=== PATIENT | female | born 1975 ===

== ENCOUNTER 2025-06-29 20:27 | Observation (INO) ==
--- NOTE | 2025-06-29 21:50 | Emergency Department Note ---
Impression & Plan Acute ear pain, Acute facial pain ED Provider Note CHIEF COMPLAINT: Ear pain HISTORY OF PRESENTING ILLNESS: The patient is a pleasant 49-year-old female who arrives to the emergency department for evaluation of left-sided ear pain that is now spread into the left jaw. She reports she saw her PCP last Thursday, and was given amoxicillin, without significant improvement of her symptoms. She reports swelling is worsened in the face, and pain is severe. She states she is unable to eat or drink due to the pain. She reports history of previous ear infections, in her youth. She reports no difficulty swallowing, or managing her own secretions. She is currently afebrile, with stable vital signs. REVIEW OF SYSTEMS: See HPI for pertinent positives and pertinent negatives. ALLERGIES: See below MEDICATIONS: See below PAST MEDICAL HISTORY: See below PHYSICAL EXAM: VITALS: Vitals are noted on the nurse's note and reviewed by myself. Vital signs stable. GENERAL: 49-year-old female, in no acute distress, nondiaphoretic, well- developed well-nourished. SKIN: Left-sided facial swelling, no erythema, no warmth. HEAD: Normocephalic atraumatic. EARS: External auditory canals clear, tympanic membranes pearly marmolejo without erythema or effusion bilaterally. No hemotympanum. EYES: Pupils equal round and reactive to light and accommodation. Conjunctivae without injection, sclerae without icterus. Extraocular movements intact. MOUTH: Mucous membranes moist. Tonsils are not enlarged. Pharynx without erythema or exudate. Uvula midline. Airway patent. Tongue does not deviate. Dental caries, erythema, with edema noted to the left lower posterior molars. No sublingual edema. No trismus. NECK: Supple without nuchal rigidity. Left cervical lymphadenopathy. HEART: Regular rate and rhythm without murmurs gallops or rubs. LUNGS: Clear to auscultation bilaterally without wheezes, rales or rhonchi. No retractions or accessory muscle use. NEURO: Patient was alert and oriented to person place and time. No focal neurological deficits. DIFFERENTIAL DIAGNOSIS: Dental caries, dental abscess, Ludwigs angina, Vincent angina, dental fracture, facial cellulitis, parotitis, osteomyelitis, sinus infection, peritonsillar abscess. ED COURSE AND MEDICAL DECISION MAKING: MEDICATIONS GIVEN: 5 mg p.o. oxycodone, 4 mg p.o. Zofran, 875 mg p.o. Augmentin, 3 g IV Unasyn. INTERPRETATION OF LABS: I interpreted the labs with full lab results as below in the lab section of this note. Pertinent lab results discussed in the MDM section below. INTERPRETATION OF IMAGING: Imaging studies were interpreted by myself and read by radiology as per the imaging section of this note. CONSULTATIONS: Dr. Herve Roman, [facility] [place] MDM SUMMARY: The patient is a pleasant, 49-year-old female who arrives to the emergency department for evaluation of the above-stated complaint. Saline lock was established, lab work was obtained. CBC shows no leukocytosis, no anemia. CMP is unremarkable. Facial CT imaging was obtained, without IV contrast due to patient allergy which per my interpretation shows periapical abscesses around tooth #19, with prominent cervical lymph nodes. I spoke with Dr. Herve oRman from [facility] [place], who agreed to evaluate the patient. Patient was provided oral pain medication, as well as IV antibiotics. [facility], and pain control, until Dr. Roman is able to likely drain the abscess. Please refer to their documentation for further patient workup and care. DIAGNOSIS: Acute ear pain, acute facial pain The chart was completed utilizing [employer] Speech voice recognition software. Grammatical errors, random word insertions, pronoun errors, and incomplete sentences are an occasional consequence of this system due to software limitations, ambient noise, and hardware issues. Any formal questions or concerns about the content, text, or information contained within the body of this dictation should be directly addressed to the provider for clarification. Past Med/Surg History Problem List Facial cellulitis Periapical abscess Tourette syndrome Acute facial pain (Acute) Acute ear pain (Acute) Dental sinus Teeth decayed Unspecified hearing loss, unspecified ear TMJ (temporomandibular joint disorder) SOB (shortness of breath) Migraine headache GERD (gastroesophageal reflux disease) Asthma Mitral valve problem Seizure disorder Medical History Stomach ulcer Heart attack Stroke Back problem Status post chemotherapy Heart disease Breast CA Anemia Surgical History History of incision and drainage (06/30/25) Left Facial Area Incision and Drainage, Extraction Teeth #18, 19 - Herve Ebenezer Roman, DMD S/P eye surgery S/P hysterectomy S/P section S/P cholecystectomy S/P brain surgery Family History Sister Myocardial infarction Breast cancer Brother Myocardial infarction Diabetes Father Heart disease Diabetes Stroke Mother Migraine headache Breast cancer Clotting disorder Family/Other Diabetes Heart disease Hypertension Stroke Social History Smoking Status: Never smoker Do You Dip or Chew Tobacco: No; Hx Alcohol Use: No Hx Substance Use: Yes Last Used Substance: Hours (ago) Substance Use Type Other:: medical marijuana Preferred Language: Kinyarwanda Communication Ability: 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 Beliefs That Will Affect Care: None marital status: Legally Current Living Situation: Family Current Living Situation Comment: boyfriend, uncle, son, granddaughter current occupational status: unemployed How many Children do You have: 3 Feels Safe at Home: Yes Diet: regular during the past year weight has: remained stable Assistive Devices: None Allergies Allergies Allergy/AdvReac Type Severity Reaction Status Date / Time azithromycin Allergy Unknown Unknown Verified 06/30/25 03:04 [From Zithromax Z-Francisco] bee venom protein (honey bee) Allergy Unknown Unknown Verified 06/30/25 03:04 ciprofloxacin [From Cipro] Allergy Unknown Unknown Verified 06/30/25 03:04 codeine Allergy Unknown Unknown Verified 06/30/25 03:04 divalproex sodium Allergy Unknown Unknown Verified 06/30/25 03:04 [From Depakote] ketorolac [From Toradol] Allergy Unknown Unknown Verified 06/30/25 03:04 levetiracetam [From Keppra] Allergy Unknown Unknown Verified 06/30/25 03:04 metronidazole [From Flagyl] Allergy Unknown Unknown Verified 06/30/25 03:04 morphine Allergy Unknown Unknown Verified 06/30/25 03:04 mushroom Allergy Unknown Unknown Verified 06/30/25 03:04 nut - unspecified Allergy Unknown Unknown Verified 06/30/25 03:04 prednisone Allergy Unknown Unknown Verified 06/30/25 03:04 strawberry Allergy Unknown Unknown Verified 06/30/25 03:04 Sulfa (Sulfonamide Allergy Unknown Unknown Verified 06/30/25 03:04 Antibiotics) tomato Allergy Unknown Unknown Verified 06/30/25 03:04 tramadol Allergy Unknown Unknown Verified 06/30/25 03:04 mustard Allergy Unknown Verified 06/30/25 03:04 Home Meds Home Medications Medication Instructions Recorded Confirmed aripiprazole 30 mg tablet 30 mg PO DAILY 08/30/24 03/28/25 atorvastatin 10 mg tablet 10 mg PO QPM 08/30/24 03/28/25 bupropion HCl 100 mg tablet 100 mg PO 08/30/24 03/28/25 diazepam 10 mg tablet 10 mg PO BID PRN panic attack(s) 08/30/24 03/28/25 duloxetine 60 mg capsule,delayed 60 mg PO DAILY 08/30/24 03/28/25 release epinephrine 0.3 mg/0.3 mL 0.3 ml IM PRN 08/30/24 03/28/25 injection, auto-injector famotidine 20 mg tablet 20 mg PO BID 08/30/24 03/28/25 pramipexole 0.5 mg tablet 0.5 mg PO DAILY 08/30/24 03/28/25 topiramate 200 mg tablet 200 mg PO BID 08/30/24 03/28/25 trazodone 100 mg tablet 200 mg PO HS PRN 08/30/24 03/28/25 triamterene 75 1 tab PO DAILY PRN Fluid Retention 08/30/24 03/28/25 mg-hydrochlorothiazide 50 mg tablet bupropion HCl 75 mg tablet 75 mg PO DAILY 09/02/24 03/28/25 duloxetine 20 mg capsule,delayed 20 mg PO DAILY 09/02/24 03/28/25 release midodrine 10 mg tablet 10 mg PO TID 09/02/24 03/28/25 oxcarbazepine 300 mg tablet 300 mg PO QAM 09/02/24 03/28/25 oxcarbazepine 600 mg tablet 600 mg PO HS 09/02/24 03/28/25 Previous Rx's Medication Instructions Recorded hydrocodone 5 mg-acetaminophen 325 1 tab PO Q6H PRN pain #14 tabs 02/24/25 mg tablet tobramycin 0.3 % eye drops 4 drp otic (ear) TID #5 mL 02/28/25 amoxicillin 875 mg-potassium 1 tab PO BIDM #10 tabs 07/02/25 clavulanate 125 mg tablet hydrocodone 5 mg-acetaminophen 325 1 tab PO Q4H PRN pain #12 tabs 07/02/25 mg tablet promethazine 25 mg tablet 25 mg PO AC PRN nausea #30 tabs 07/02/25 oxycodone 5 mg tablet 5 mg PO Q4H PRN pain #20 tabs 07/05/25 Results & Data (ED) Vital Signs Vital Signs - 24 hr 06/29/25 20:36 06/29/25 21:25 06/29/25 22:30 Temperature 37 C Temperature Source Oral Pulse Rate 84 Pulse Rate [Left Finger] 81 81 Pulse Rhythm Regular Pulse Rhythm [Left Finger] Regular Regular Pulse Strength Normal Pulse Strength [Left Finger] Normal Normal Respiratory Rate 18 16 18 Respiratory Effort / Characteristics Non-Labored Spontaneous Non-Labored Spontaneous Non-Labored Spontaneous Respiratory Depth Normal Normal Normal Respiratory Pattern Regular Regular Regular Blood Pressure 155/95 H Blood Pressure [Left Arm] 136/109 H 120/81 Blood Pressure Mean 115 Blood Pressure Mean [Left Arm] 118 94 Blood Pressure Position [Left Arm] Sitting Sitting Pulse Oximetry 95 96 95 Oxygen Delivery Method Room Air Room Air Room Air Sepsis Recent Fever Within 48 Hours No Sepsis New/Unexplained Change in Mental Status No Sepsis Action Taken by Nursing No Action Required 06/29/25 22:50 06/30/25 00:37 Temperature Temperature Source Pulse Rate 82 Pulse Rate [Left Finger] 83 Pulse Rhythm Pulse Rhythm [Left Finger] Pulse Strength Pulse Strength [Left Finger] Respiratory Rate 16 Respiratory Effort / Characteristics Non-Labored Spontaneous Respiratory Depth Normal Respiratory Pattern Blood Pressure Blood Pressure [Left Arm] 86/61 L Blood Pressure Mean Blood Pressure Mean [Left Arm] 69 Blood Pressure Position [Left Arm] Lying Pulse Oximetry 95 Oxygen Delivery Method Room Air Sepsis Recent Fever Within 48 Hours Sepsis New/Unexplained Change in Mental Status Sepsis Action Taken by Intermediate Medications Current Medication List: was personally reviewed by me Laboratory Data Attestation: I reviewed the patient's lab results. 07/01/25 09:50 07/01/25 09:50 Lab Results 06/29/25 Range/Units 22:30 WBC 9.05 (4.8-10.8) K/ul RBC 4.38 (4.20-5.40) M/uL Hgb 12.3 (12.0-16.0) g/dl Hct 37.0 (37.0-47.0) % MCV 84.5 (80.0-100.0) fL MCH 28.1 (25.0-34.0) pg MCHC 33.2 (32.0-36.0) g/dL RDW Std Deviation 41.7 (36.4-46.3) fL RDW Coeff of Letitia 13.3 (11.5-14.5) % Plt Count 268 (130-400) K/uL MPV 9.8 (9.4-12.4) fL Immature Gran % (Auto) 0.7 % Neut % (Auto) 47.9 % Lymph % (Auto) 43.8 % [place] % (Auto) 5.0 % Eos % (Auto) 2.2 % Baso % (Auto) 0.4 % Neut # (Auto) 4.34 (1.40-6.50) K/uL Lymph # (Auto) 3.96 H (1.20-3.40) K/uL [place] # (Auto) 0.45 (0.11-0.59) K/uL Eos # (Auto) 0.20 (0.00-0.50) K/uL Baso # (Auto) 0.04 (0.00-0.20) K/uL Immature Gran # (Auto) 0.06 (0.01-0.20) K/uL Sodium 138 (136-145) mmol/L Potassium 4.1 (3.5-5.1) mmol/L Chloride 105 (98-107) mmol/L Carbon Dioxide 24 (21-32) mmol/L Anion Gap 9 (3-11) BUN 13 (6-23) mg/dl Creatinine 0.70 (0.6-1.2) mg/dl Est Cr Clr Drug Dosing 116.8 ml/min eGFR 106.62 BUN/Creatinine Ratio 18.6 (10-20) Glucose 96 (70-99(Fasting)) mg/dl Calcium 9.2 (8.6-10.3) mg/dl Total Bilirubin 0.3 (0.2-1.0) mg/dl AST 19 (13-39) U/L ALT 30 (7-52) U/L Alkaline Phosphatase 93 (34-104) U/L Total Protein 7.6 (6.0-8.3) gm/dl Albumin 3.9 (3.4-5.0) gm/dl Globulin 3.7 (2.5-4.0) gm/dl Albumin/Globulin Ratio 1.1 (0.9-2) Administered Medications Discontinued Medications Hydrocodone Bitart/Acetaminophen (Hydrocodone/Acetamophen 5/325mg Tab) 1 tab PO Q4H PRN PRN Reason: Pain Stop: 07/16/25 10:10 Last Admin: 07/02/25 10:48 Dose: 1 tab Documented By: JOHN Amoxicillin/Clavulanate Potassium (Amoxicillin/Clavulanate 875 Mg Tab) 1 tab PO NOW ONE; Protocol Stop: 06/30/25 00:50 Last Admin: 06/30/25 01:04 Dose: Not Given Documented By: LAZARO Amoxicillin/Clavulanate Potassium (Amoxicillin/Clavulanate 875 Mg Tab) 1 tab PO BIDM [facility]; Protocol Stop: 07/11/25 16:59 Last Admin: 07/02/25 09:02 Dose: 1 tab Documented By: Admin: 07/01/25 17:51 Dose: 1 tab Documented By: MAXWELL Aripiprazole (Aripiprazole 15 Mg Tab) 30 mg PO DAILY [facility] Stop: 07/30/25 08:59 Last Admin: 07/02/25 10:26 Dose: Not Given Documented By: Admin: 07/01/25 08:11 Dose: Not Given Documented By: Admin: 06/30/25 16:55 Dose: Not Given Documented By: B Atorvastatin Calcium (Atorvastatin 10 Mg Tab) 10 mg PO QPM [facility] Stop: 07/30/25 20:59 Last Admin: 07/01/25 21:09 Dose: 10 mg Documented By: adam Admin: 06/30/25 22:13 Dose: Not Given Documented By: adam Bupivacaine HCl (Bupivacaine/Epinephrine 0.5% 1:200,000 1.8 Ml Carp) Confirm Administered Dose 10.8 ml .ROUTE .STK-MED ONE Stop: 06/30/25 14:03 Last Admin: 06/30/25 14:25 Dose: 3.6 ml Documented By: GERARD Bupivacaine HCl/Epinephrine Bitart (Bupivacaine/Epinephrine 0.5% Mpf 1:200,000 30 Ml Vial) Confirm Administered Dose 30 ml .ROUTE .STK-MED ONE Stop: 06/30/25 13:46 Last Admin: 06/30/25 14:26 Dose: Not Given Documented By: CC Bupropion HCl (Bupropion Hcl 100 Mg Tablet) 100 mg PO DAILY PRATIK Stop: 07/30/25 08:59 Last Admin: 07/02/25 10:25 Dose: Not Given Documented By: Admin: 07/01/25 10:03 Dose: Not Given Documented By: Admin: 06/30/25 16:55 Dose: Not Given Documented By: HRB Bupropion HCl (Bupropion Hcl 75 Mg Tablet) 75 mg PO DAILY PRATIK Stop: 07/30/25 08:59 Last Admin: 07/02/25 10:25 Dose: Not Given Documented By: Admin: 07/01/25 08:13 Dose: 75 mg Documented By: Admin: 06/30/25 16:55 Dose: Not Given Documented By: HRB Chlorhexidine Gluconate (Chlorhexidine Gluconate 0.12% 480 Ml) Confirm Administered Dose 480 ml [facility] ONE Stop: 06/30/25 13:47 Last Admin: 06/30/25 14:25 Dose: Not Given Documented By: CC Duloxetine HCl (Duloxetine Hcl 20 Mg Cap) 20 mg PO DAILY PRATIK Stop: 07/30/25 08:59 Last Admin: 07/02/25 10:25 Dose: Not Given Documented By: Admin: 07/01/25 08:11 Dose: Not Given Documented By: Admin: 06/30/25 16:55 Dose: Not Given Documented By: HRB Duloxetine HCl (Duloxetine Hcl 60 Mg Cap) 60 mg PO DAILY PRATIK Stop: 07/30/25 08:59 Last Admin: 07/02/25 10:25 Dose: Not Given Documented By: Admin: 07/01/25 08:11 Dose: Not Given Documented By: Admin: 06/30/25 16:55 Dose: Not Given Documented By: HRB Enoxaparin Sodium (Enoxaparin Inj 40 Mg/0.4 Ml Syr) 40 mg SQ HS PRATIK Stop: 07/31/25 20:59 Last Admin: 07/01/25 21:07 Dose: Not Given Documented By: asg Famotidine (Famotidine 20 Mg Tab) 20 mg PO BID PRATIK Stop: 07/30/25 08:59 Last Admin: 07/02/25 10:11 Dose: 20 mg Documented By: Admin: 07/01/25 21:10 Dose: 20 mg Documented By: adam Admin: 07/01/25 08:09 Dose: 20 mg Documented By: Admin: 06/30/25 22:13 Dose: Not Given Documented By: adam Admin: 06/30/25 08:14 Dose: 20 mg Documented By: HRJeffrey Guanfacine HCl (Guanfacine Hcl 1 Mg Tab) 1 mg PO DAILY PRATIK Stop: 07/30/25 08:59 Last Admin: 07/01/25 08:16 Dose: Not Given Documented By: Admin: 06/30/25 16:55 Dose: Not Given Documented By: CALDERON Hydromorphone HCl (Hydromorphone Inj 0.5 Mg/0.5 Ml Syr) 0.5 mg IV Q4H PRN PRN Reason: Severe Pain (Scale 7, 8, 9,10) Stop: 07/14/25 10:03 Last Admin: 07/01/25 08:05 Dose: 0.5 mg Documented By: Admin: 07/01/25 03:48 Dose: 0.5 mg Documented By: adam Ampicillin Sodium/Sulbactam Sodium (Unasyn) 3,000 mg in 100 mls @ 200 mls/hr IV NOW STA Stop: 06/30/25 01:29 Last Infusion: 06/30/25 02:00 Dose: Infused Documented By: Admin: 06/30/25 01:19 Dose: 200 mls/hr Documented By: Lactated Ringer's (Lr) 1,000 mls @ 100 mls/hr IV .Q10H PRATIK Stop: 06/30/25 13:00 Last Infusion: 06/30/25 13:15 Dose: Infused Documented By: Infusion: 06/30/25 10:32 Dose: 100 mls/hr Documented By: Infusion: 06/30/25 08:55 Dose: 0 mls/hr Documented By: Admin: 06/30/25 03:17 Dose: 100 mls/hr Documented By: BRANDI Ampicillin Sodium/Sulbactam Sodium (Unasyn) 3,000 mg in 100 mls @ 200 mls/hr IV Q6H PRATIK Stop: 07/10/25 07:59 Last Infusion: 07/01/25 15:30 Dose: Infused Documented By: Admin: 07/01/25 15:00 Dose: 200 mls/hr Documented By: Infusion: 07/01/25 10:56 Dose: Infused Documented By: Admin: 07/01/25 10:26 Dose: 200 mls/hr Documented By: Infusion: 07/01/25 02:20 Dose: Infused Documented By: asmushtaq Admin: 07/01/25 01:46 Dose: 200 mls/hr Documented By: asg Infusion: 06/30/25 20:28 Dose: Infused Documented By: asg Admin: 06/30/25 19:58 Dose: 200 mls/hr Documented By: asg Admin: 06/30/25 16:55 Dose: Not Given Documented By: Infusion: 06/30/25 10:26 Dose: Infused Documented By: Admin: 06/30/25 08:55 Dose: 200 mls/hr Documented By: HRB Prochlorperazine 5 mg/ Syringe 5 mls @ 5 mls/min IV Q6H PRN; Protocol PRN Reason: Nausea And Vomiting Stop: 07/30/25 10:02 Last Admin: 06/30/25 11:33 Dose: 5 mls/min Documented By: HRB Acetaminophen (Ofirmev) 1,000 mg in 100 mls @ 400 mls/hr IV Q8H [facility] Stop: 07/02/25 01:59 Last Admin: 07/02/25 01:52 Dose: Not Given Documented By: adam Admin: 07/01/25 17:04 Dose: Not Given Documented By: Admin: 07/01/25 11:21 Dose: Not Given Documented By: MAXWELL Loperamide HCl (Loperamide Hcl 2 Mg Cap) 2 mg PO Q1H PRN PRN Reason: Diarrhea Stop: 08/01/25 10:08 Last Admin: 07/02/25 10:48 Dose: 2 mg Documented By: PME Midodrine (Midodrine Hcl 10 Mg Tab) 10 mg PO TID@0800,1200,1800 [facility] Stop: 07/30/25 07:59 Last Admin: 07/02/25 13:08 Dose: Not Given Documented By: Admin: 07/02/25 09:02 Dose: 10 mg Documented By: Admin: 07/01/25 17:52 Dose: Not Given Documented By: Admin: 07/01/25 11:21 Dose: Not Given Documented By: Admin: 07/01/25 08:12 Dose: 10 mg Documented By: Admin: 06/30/25 18:10 Dose: Not Given Documented By: Admin: 06/30/25 15:07 Dose: Not Given Documented By: Admin: 06/30/25 08:19 Dose: Not Given Documented By: CALDERON Ondansetron HCl (Ondansetron 4 Mg Od Tab) 4 mg PO NOW STA Stop: 06/29/25 23:28 Last Admin: 06/29/25 23:36 Dose: 4 mg Documented By: JOSÉ MIGUEL Ondansetron HCl (Ondansetron Inj 2 Mg/Ml 2 Ml Vial) 4 mg IV Q6H PRN; Protocol PRN Reason: Nausea And Vomiting Stop: 07/30/25 03:00 Last Admin: 07/01/25 09:41 Dose: 4 mg Documented By: Admin: 07/01/25 03:48 Dose: 4 mg Documented By: adam Admin: 06/30/25 21:22 Dose: 4 mg Documented By: adam Admin: 06/30/25 08:03 Dose: 4 mg Documented By: CALDERON Oxcarbazepine ([facility]ine 150 Mg Tablet) [facility] Stop: 07/30/25 08:59 Last Admin: 07/02/25 10:25 Dose: Not Given Documented By: Admin: 07/01/25 08:17 Dose: 300 mg Documented By: Admin: 06/30/25 16:55 Dose: Not Given Documented By: CALDERON Oxcarbazepine (Oxcarbazepine 150 Mg Tablet) 600 mg PO HS [facility] Stop: 07/30/25 20:59 Last Admin: 07/01/25 21:09 Dose: Not Given Documented By: adam Admin: 06/30/25 22:13 Dose: Not Given Documented By: adam Oxycodone HCl (Oxycodone Hcl Ir 5 Mg Tab (Immediate Release)) 5 mg PO NOW STA Stop: 06/29/25 22:16 Last Admin: 06/29/25 22:30 Dose: 5 mg Documented By: ADARSH Oxycodone HCl (Oxycodone Hcl Ir 5 Mg Tab (Immediate Release)) 5 mg PO Q4H PRN PRN Reason: Severe Pain (Scale 7, 8, 9,10) Stop: 07/14/25 03:00 Last Admin: 06/30/25 19:57 Dose: 5 mg Documented By: adam Admin: 06/30/25 03:23 Dose: 5 mg Documented By: BRANDI Pramipexole Dihydrochloride (Pramipexole Dihydrochlo 0.5 Mg Tab) 0.5 mg PO DAILY [facility] Stop: 07/30/25 08:59 Last Admin: 07/02/25 10:25 Dose: Not Given Documented By: Admin: 07/01/25 08:16 Dose: Not Given Documented By: Admin: 06/30/25 16:55 Dose: Not Given Documented By: HRB Promethazine HCl (Promethazine Hcl 25 Mg Tab) 25 mg PO AC [facility] Stop: 07/31/25 11:29 Last Admin: 07/02/25 13:07 Dose: Not Given Documented By: Admin: 07/02/25 07:14 Dose: 25 mg Documented By: Admin: 07/01/25 17:03 Dose: 25 mg Documented By: Admin: 07/01/25 11:20 Dose: 25 mg Documented By: MAXWELL Topiramate (Topiramate 100 Mg Tab) 200 mg PO BID [facility] Stop: 07/30/25 08:59 Last Admin: 07/02/25 10:11 Dose: 200 mg Documented By: Admin: 07/01/25 21:10 Dose: 200 mg Documented By: adam Admin: 07/01/25 08:14 Dose: 200 mg Documented By: Admin: 06/30/25 22:13 Dose: Not Given Documented By: adam Admin: 06/30/25 08:20 Dose: Not Given Documented By: HRB Imaging Data Attestation: I personally reviewed and interpreted this imaging study as follows: Radiologist's Impression: Face CT 06/29/25 23:06 Exam(s): CT FACIAL Without Contrast EXAM: CT Head and Maxillofacial Without Intravenous Contrast CLINICAL HISTORY: Reason for exam: left mastoid pain, facial swelling. TECHNIQUE: Axial computed tomography images of the head/brain and face without intravenous contrast. CTDI is 36.26 mGy and DLP is 610.24 mGy-cm. Automated exposure control was utilized for the study. A dose lowering technique was utilized adhering to the principles of ALARA. COMPARISON: No relevant prior studies available. FINDINGS: Brain: Unremarkable. No hemorrhage. No significant white matter disease. No edema. Ventricles: Unremarkable. No ventriculomegaly. Bones/joints: No acute fracture. There is a periapical abscess around tooth #19. Recommend dental consult. Soft tissues: Prominent cervical lymph nodes. Sinuses: Chronic maxillary and ethmoid sinusitis. No acute sinusitis. Mastoid air cells: Unremarkable as visualized. No mastoid effusion. Orbits: Unremarkable as visualized. IMPRESSION: No evidence of temporal bone pathology. Chronic maxillary and ethmoid sinusitis. Electronically signed by: Pepper Grant MD 06/30/25 00:36 AM Discharge Plan Visit Data Chief Complaint: Ear Pain/Problem Stated Complaint: LT EAR AND FACE PAIN, POSS INFECTION, ~2 WKS ED Provider: Genesis Perez ED Midlevel Provider: Vianca Carr Discharge Problem: Acute ear pain, Acute facial pain Patient Disposition: Admitted As Inpatient Condition: Fair Discharge Instructions Interventions: ED Discharge Assessment Last Done: 06/30/25 02:50
[2025-06-29 22:48] LABS: Hematocrit (blood only) 37.0 % (37.0-47.0); Hemoglobin 12.3 g/dl (12.0-16.0); Immature Granulocytes # (auto) 0.06 K/uL (0.01-0.20); Immature Granulocytes % (auto) 0.7 %; Mean Corpuscular Hemoglobin 28.1 pg (25.0-34.0); Mean Corpuscular Volume 84.5 fL (80.0-100.0); Platelet Count 268 K/uL (130-400); RDW Standard Deviation 41.7 fL (36.4-46.3); Red Blood Count 4.38 M/uL (4.20-5.40); White Blood Count 9.05 K/ul (4.8-10.8)
[2025-06-29 23:05] LABS: Alanine Aminotransferase 30.0 U/L (7-52); Albumin Globulin Ratio 1.1 (0.9-2); Albumin Level 3.9 gm/dl (3.4-5.0); Alkaline Phosphatase 93.0 U/L (34-104); Anion Gap 9.0 (3-11); Bilirubin,Total 0.3 mg/dl (0.2-1.0); Blood Urea Nitrogen 13.0 mg/dl (6-23); Calcium 9.2 mg/dl (8.6-10.3); Carbon Dioxide 24.0 mmol/L (21-32); Chloride 105.0 mmol/L (98-107); Creatinine Clr Calc Pharmacy 116.8 ml/min; Globulin 3.7 gm/dl (2.5-4.0); Glucose 96.0 mg/dl (70-99(Fasting)); Potassium 4.1 mmol/L (3.5-5.1); Sodium 138.0 mmol/L (136-145); Total Protein 7.6 gm/dl (6.0-8.3)
[2025-06-29] MEDS: ONDANSETRON 4 MG OD TAB PO STA (23:36)
--- NOTE | 2025-06-30 00:37 | CT Scan Report ---
Exam(s): CT FACIAL Without Contrast EXAM: CT Head and Maxillofacial Without Intravenous Contrast CLINICAL HISTORY: Reason for exam: left mastoid pain, facial swelling. TECHNIQUE: Axial computed tomography images of the head/brain and face without intravenous contrast. CTDI is 36.26 mGy and DLP is 610.24 mGy-cm. Automated exposure control was utilized for the study. A dose lowering technique was utilized adhering to the principles of ALARA. COMPARISON: No relevant prior studies available. FINDINGS: Brain: Unremarkable. No hemorrhage. No significant white matter disease. No edema. Ventricles: Unremarkable. No ventriculomegaly. Bones/joints: No acute fracture. There is a periapical abscess around tooth #19. Recommend dental consult. Soft tissues: Prominent cervical lymph nodes. Sinuses: Chronic maxillary and ethmoid sinusitis. No acute sinusitis. Mastoid air cells: Unremarkable as visualized. No mastoid effusion. Orbits: Unremarkable as visualized. IMPRESSION: No evidence of temporal bone pathology. Chronic maxillary and ethmoid sinusitis. Electronically signed by: Pepper Grant MD 06/30/25 00:36 AM
[2025-06-30] MEDS: AMOXICILLIN/CLAVULANATE 875 MG TAB PO ONE (01:04)
[2025-06-30] MEDS: AMPICILLIN/SULBACTAM SOD 3,000 MG/100 ML BAG IV STA (01:19)
--- NOTE | 2025-06-30 01:32 | History & Physical Report ---
Date of Service June 30, 2025 Assessment & Plan (1) Periapical abscess: (2) Acute facial pain: (3) GERD (gastroesophageal reflux disease): (4) Seizure disorder: (5) Tourette syndrome: Plan 49yo female presenting with 1 week of left sided facial pain and swelling. #Periapical abscess - as above, CT with periapical abscess of tooth #19. Patient afebrile, HD stable and non-toxic in appearance. Has been discussed with OMFS - plan for drainage in AM -Admit to medical -Maintain NPO -LR at 100mL/hr x 1L -Warm compresses to left face -Tylenol, Ibuprofen as needed for mild to moderate pain -Oxycodone as needed for severe pain -Unasyn -OMFS consultation appreciated #Seizure disorder/Tourette syndrome -Continue home medications -Abilify -Wellbutrin -Valium -Cymbalta -Guanfacine -Trileptal -Topamax #Hyperlipidemia -Continue Atorvastatin 10mg po qPM #GERD -Continue Pepcid 20mg po BID History of Present Illness Chief Complaint: left facial pain Primary Care Provider: Elie Tang MD Kaya Gunter is a 49yo female presenting with severe right facial pain. She reports pain in the left ear approximately 1 week ago. She was seen by her PCP and started on Amoxicillin which helped with the ear pain. Then developed worsening pain of the left face and jaw. Also with swelling. Has been using salt water and Listerine gargles. Denies fever, chills, hearing loss, trismus In the ER patient afebrile ER Course: Unasyn Zofran Oxycodone Allergies Allergy/AdvReac Type Severity Reaction Status Date / Time azithromycin Allergy Unknown Unknown Verified 06/30/25 03:04 [From Zithromax Z-Francisco] bee venom protein (honey bee) Allergy Unknown Unknown Verified 06/30/25 03:04 ciprofloxacin [From Cipro] Allergy Unknown Unknown Verified 06/30/25 03:04 codeine Allergy Unknown Unknown Verified 06/30/25 03:04 divalproex sodium Allergy Unknown Unknown Verified 06/30/25 03:04 [From Depakote] ketorolac [From Toradol] Allergy Unknown Unknown Verified 06/30/25 03:04 levetiracetam [From Keppra] Allergy Unknown Unknown Verified 06/30/25 03:04 metronidazole [From Flagyl] Allergy Unknown Unknown Verified 06/30/25 03:04 morphine Allergy Unknown Unknown Verified 06/30/25 03:04 mushroom Allergy Unknown Unknown Verified 06/30/25 03:04 nut - unspecified Allergy Unknown Unknown Verified 06/30/25 03:04 prednisone Allergy Unknown Unknown Verified 06/30/25 03:04 strawberry Allergy Unknown Unknown Verified 06/30/25 03:04 Sulfa (Sulfonamide Allergy Unknown Unknown Verified 06/30/25 03:04 Antibiotics) tomato Allergy Unknown Unknown Verified 06/30/25 03:04 tramadol Allergy Unknown Unknown Verified 06/30/25 03:04 mustard Allergy Unknown Verified 06/30/25 03:04 Home Medications Medication Instructions Recorded Confirmed Type aripiprazole 30 mg tablet 30 mg PO DAILY 08/30/24 03/28/25 History atorvastatin 10 mg tablet 10 mg PO QPM 08/30/24 03/28/25 History bupropion HCl 100 mg tablet 100 mg PO 08/30/24 03/28/25 History diazepam 10 mg tablet 10 mg PO BID PRN panic attack(s) 08/30/24 03/28/25 History duloxetine 60 mg capsule,delayed 60 mg PO DAILY 08/30/24 03/28/25 History release epinephrine 0.3 mg/0.3 mL 0.3 ml IM PRN 08/30/24 03/28/25 History injection, auto-injector famotidine 20 mg tablet 20 mg PO BID 08/30/24 03/28/25 History guanfacine 1 mg tablet 1 mg PO DAILY 08/30/24 03/28/25 History pramipexole 0.5 mg tablet 0.5 mg PO DAILY 08/30/24 03/28/25 History topiramate 200 mg tablet 200 mg PO BID 08/30/24 03/28/25 History trazodone 100 mg tablet 200 mg PO HS PRN 08/30/24 03/28/25 History triamterene 75 1 tab PO DAILY PRN Fluid Retention 08/30/24 03/28/25 History mg-hydrochlorothiazide 50 mg tablet bupropion HCl 75 mg tablet 75 mg PO DAILY 09/02/24 03/28/25 History duloxetine 20 mg capsule,delayed 20 mg PO DAILY 09/02/24 03/28/25 History release midodrine 10 mg tablet 10 mg PO TID 09/02/24 03/28/25 History oxcarbazepine 300 mg tablet 300 mg PO QAM 09/02/24 03/28/25 History oxcarbazepine 600 mg tablet 600 mg PO HS 09/02/24 03/28/25 History hydrocodone 5 mg-acetaminophen 325 1 tab PO Q6H PRN pain #14 tabs 02/24/25 03/28/25 Rx mg tablet tobramycin 0.3 % eye drops 4 drp otic (ear) TID #5 mL 02/28/25 03/28/25 Rx Past Med/Surg History Problem List (Updated 06/30/25 @ 03:41 by Latasha Headley DO) Periapical abscess Tourette syndrome Acute facial pain (Acute) Acute ear pain (Acute) Dental sinus Teeth decayed Unspecified hearing loss, unspecified ear TMJ (temporomandibular joint disorder) SOB (shortness of breath) Migraine headache GERD (gastroesophageal reflux disease) Asthma Mitral valve problem Seizure disorder Medical History Stomach ulcer Heart attack Stroke Back problem Status post chemotherapy Heart disease Breast CA Anemia Surgical History S/P eye surgery S/P hysterectomy S/P section S/P cholecystectomy S/P brain surgery Family History Sister Myocardial infarction Breast cancer Brother Myocardial infarction Diabetes Father Heart disease Diabetes Stroke Mother Migraine headache Breast cancer Clotting disorder Family/Other Diabetes Heart disease Hypertension Stroke Social History Smoking Status: Never smoker Preferred Language: Khmer marital status: Legally current occupational status: unemployed How many Children do You have: 3 Feels Safe at Home: Yes Diet: regular during the past year weight has: remained stable Review of Systems Review of Systems: All systems reviewed & are unremarkable except as noted in HPI & below Physical Exam Physical Exam: General: patient resting comfortably, NAD, non-toxic in appearance, AA&O x 4 Skin: warm, dry, intact, no rashes or lesions HEENT: NC/AT, PERRL, EOMI, anicteric sclera, conjunctiva without injection, external ear normal to inspection and nontender, nares patent, moist mucus membranes, poor dentition, tenderness of left face, submandibular and submental regions, TM left with no acute infection, trachea midline, no LAD, no thyromegaly, no JVD Heart: +S1/S2, regular, no m/r/g Lungs: equal air entry bilaterally, no rales/rhonchi/wheezes Abd: +BS, soft, NT/ND, no masses/organomegaly/ascites Ext: warm, 2+ pulses in UE/LE bilaterally, no clubbing/cyanosis or edema Neuro: nonfocal, patient AA&O x 4, speech intact, no facial droop, moving all extremities on command with equal strength 5/5 Results & Data Results & Data Vital Signs (Past 12 Hours) Vital Signs Temp Pulse Pulse Resp BP BP Pulse Ox 06/30/25 00:37 83 16 86/61 L 95 06/29/25 22:50 82 06/29/25 22:30 81 18 120/81 95 06/29/25 21:25 81 16 136/109 H 96 06/29/25 20:36 37 C 84 18 155/95 H 95 O2 Del Method 06/30/25 00:37 Room Air 06/29/25 22:50 06/29/25 22:30 Room Air 06/29/25 21:25 Room Air 06/29/25 20:36 Room Air Laboratory Results Laboratory Results WBC 9.05 K/ul (4.8-10.8) 06/29/25 22:30 RBC 4.38 M/uL (4.20-5.40) 06/29/25 22:30 Hgb 12.3 g/dl (12.0-16.0) 06/29/25 22:30 Hct 37.0 % (37.0-47.0) 06/29/25 22:30 MCV 84.5 fL (80.0-100.0) 06/29/25 22:30 MCH 28.1 pg (25.0-34.0) 06/29/25 22:30 MCHC 33.2 g/dL (32.0-36.0) 06/29/25 22:30 RDW Std Deviation 41.7 fL (36.4-46.3) 06/29/25 22:30 RDW Coeff of Letitia 13.3 % (11.5-14.5) 06/29/25: Plt Count 268 K/uL (130-400) 06/29/25: MPV 9.8 fL (9.4-12.4) 06/29/25: Immature Gran % (Auto) 0.7 % 06/29/25: Neut % (Auto) 47.9 % 06/29/25: Lymph % (Auto) 43.8 % 06/29/25:30 Howard % (Auto) 5.0 % 06/29/25: Eos % (Auto) 2.2 % 06/29/25: Baso % (Auto) 0.4 % 06/29/25: Neut # (Auto) 4.34 K/uL (1.40-6.50) 06/29/25:30 Lymph # (Auto) 3.96 K/uL (1.20-3.40) H 06/29/25:30 Howard # (Auto) 0.45 K/uL (0.11-0.59) 06/29/25 22:30 Eos # (Auto) 0.20 K/uL (0.00-0.50) 06/29/25:30 Baso # (Auto) 0.04 K/uL (0.00-0.20) 06/29/25: Immature Gran # (Auto) 0.06 K/uL (0.01-0.20) 06/29/25 22:30 Sodium 138 mmol/L (136-145) 06/29/25:30 Potassium 4.1 mmol/L (3.5-5.1) 06/29/25 22:30 Chloride 105 mmol/L (98-107) 06/29/25:30 Carbon Dioxide 24 mmol/L (21-32) 06/29/25 22:30 Anion Gap 9 (3-11) 06/29/25 22:30 BUN 13 mg/dl (6-23) 06/29/25 22:30 Creatinine 0.70 mg/dl (0.6-1.2) 06/29/25: Est Cr Clr Drug Dosing 116.8 ml/min 06/29/25 22:30 eGFR 106.62 06/29/25 22:30 BUN/Creatinine Ratio 18.6 (10-20) 06/29/25 22:30 Glucose 96 mg/dl (70-99(Fasting)) 06/29/25 22:30 Calcium 9.2 mg/dl (8.6-10.3) 06/29/25 22:30 Total Bilirubin 0.3 mg/dl (0.2-1.0) 06/29/25 22:30 AST 19 U/L (13-39) 06/29/25 22:30 ALT 30 U/L (7-52) 06/29/25 22:30 Alkaline Phosphatase 93 U/L (34-104) 06/29/25 22:30 Total Protein 7.6 gm/dl (6.0-8.3) 06/29/25 22:30 Albumin 3.9 gm/dl (3.4-5.0) 06/29/25 22:30 Globulin 3.7 gm/dl (2.5-4.0) 06/29/25 22:30 Albumin/Globulin Ratio 1.1 (0.9-2) 06/29/25 22:[address] 06/29/25 23:06 Exam(s): CT FACIAL Without Contrast EXAM: CT Head and Maxillofacial Without Intravenous Contrast CLINICAL HISTORY: Reason for exam: left mastoid pain, facial swelling. TECHNIQUE: Axial computed tomography images of the head/brain and face without intravenous contrast. CTDI is 36.26 mGy and DLP is 610.24 mGy-cm. Automated exposure control was utilized for the study. A dose lowering technique was utilized adhering to the principles of ALARA. COMPARISON: No relevant prior studies available. FINDINGS: Brain: Unremarkable. No hemorrhage. No significant white matter disease. No edema. Ventricles: Unremarkable. No ventriculomegaly. Bones/joints: No acute fracture. There is a periapical abscess around tooth #19. Recommend dental consult. Soft tissues: Prominent cervical lymph nodes. Sinuses: Chronic maxillary and ethmoid sinusitis. No acute sinusitis. Mastoid air cells: Unremarkable as visualized. No mastoid effusion. Orbits: Unremarkable as visualized. IMPRESSION: No evidence of temporal bone pathology. Chronic maxillary and ethmoid sinusitis. Electronically signed by: Pepper Grant MD 06/30/25 00:36 AM PG Care Time/CCT Total # of Minutes Spent Total Time Spent with Patient: Total time spent is greater than 50% in coordination of care (as documented) at patient's floor/unit and/or counseling patient: Coding Level of Care Code 44502 INT INP/OBS CARE 3/75MIN Diagnoses Periapical abscess K04.7 Acute facial pain R51.9 GERD (gastroesophageal reflux disease) K21.9 Seizure disorder G40.909 Tourette syndrome F95.2
[2025-06-30] MEDS ORDERED: DOCUSATE SODIUM 100 MG CAP PO PRN (03:01)
[2025-06-30] MEDS ORDERED: ACETAMINOPHEN 500 MG TAB PO PRN (03:01)
[2025-06-30] MEDS ORDERED: IBUPROFEN 600 MG TAB PO PRN (03:01)
[2025-06-30] MEDS: LACTATED RINGER'S 1,000 ML IV SCH (03:17)
[2025-06-30] MEDS: ONDANSETRON INJ 2 MG/ML 2 ML VIAL IV PRN (08:03)
[2025-06-30] MEDS: FAMOTIDINE 20 MG TAB PO SCH (08:14)
[2025-06-30] MEDS: MIDODRINE HCL 10 MG TAB PO SCH (08:19)
[2025-06-30] MEDS: TOPIRAMATE 100 MG TAB PO SCH (08:20)
[2025-06-30] MEDS: AMPICILLIN/SULBACTAM SOD 3,000 MG/100 ML BAG IV SCH (08:55)
--- NOTE | 2025-06-30 10:00 | Oral/Maxillofacial Consult ---
Date of Consultation June 30, 2025 Assessment & Plan (1) Periapical abscess: (2) Tourette syndrome: (3) Acute facial pain: (4) Acute ear pain: History of Present Illness Attending Physician: Anne-Marie Cook MD History of Present Illness Oral Maxillofacial Surgery Exam Present Complaint: I have pain/swelling/drainage from my infected teeth. Symptoms have been ongoing for a while. Oral Exam: Finding-I have seen Kaya in the past and suggested she get the lower infected teeth removed. Now infection with submandibular infection. Will need I&D and extraction of infected roots # 18,19 and 23 I will do the surgery this afternoon as soon as I am done with the surgical center and office consults about 12:30 Please keep NPO and I will review the I&D and extraction when I see her in the holding area pre surgery. Imaging: CT see report abscess lower left jaw # 18,# 19 # 23 Soft tissue: Left facial swelling due to grossly infected lower teeth The floor of the mouth, tongue, hard/soft palate, posterior pharyngeal area all with in normal limits, no pathology or abnormal findings noted. No lesions noted that require follow up or Bx. Oral Care: Overall oral care is poor Occlusion: Class I missing teeth TMJ exam: No pop, clicking, pain, good ROM, No history of TMJ injury or dysfunction Periodontal exam: gingival tissue with evidence of periodontal pathology. Head/Neck exam: Neck is supple, FROM, Able to extend and flex neck w/o difficulty, no masses, no abnormalities, no airway issues, clinical evidence of sleep apnea. Treatment Plan: Set up with general anesthesia in hospital due to complexity of the procedure I reviewed the treatment plan and consent with the patient Understanding was expressed. Time was given for questions regarding the surgery, risks and post op care. I and D with extraction of # 18,19 and 23 The following teeth are decayed and fractured and removal is indicated DEONDRE: Risks discussed: Bleeding,Pain,swelling,infection, dry socket, delayed healing, nerve injury to face,lips,tongue,chin area which could be permanent (rare). TMJ, jaw stiffness, change in bite (rare), ear pain (referred). Sinus problems like fistula or infection. Need to leave a small root fragment in place to avoid injury to nerve or sinus. Relationship of wisdom teeth to nerve/sinus and risk of jaw fracture. Home care reviewed: tooth brushing, rinsing, follow up care with Dr Roman. diet=[id number] dental. Discussed activity level, driving/work while on Rx pain Meds. Surgery to be set this PM in the OR Allergies Allergy/AdvReac Type Severity Reaction Status Date / Time azithromycin Allergy Unknown Unknown Verified 06/30/25 03:04 [From Zithromax Z-Francisco] bee venom protein (honey bee) Allergy Unknown Unknown Verified 06/30/25 03:04 ciprofloxacin [From Cipro] Allergy Unknown Unknown Verified 06/30/25 03:04 codeine Allergy Unknown Unknown Verified 06/30/25 03:04 divalproex sodium Allergy Unknown Unknown Verified 06/30/25 03:04 [From Depakote] ketorolac [From Toradol] Allergy Unknown Unknown Verified 06/30/25 03:04 levetiracetam [From Keppra] Allergy Unknown Unknown Verified 06/30/25 03:04 metronidazole [From Flagyl] Allergy Unknown Unknown Verified 06/30/25 03:04 morphine Allergy Unknown Unknown Verified 06/30/25 03:04 mushroom Allergy Unknown Unknown Verified 06/30/25 03:04 nut - unspecified Allergy Unknown Unknown Verified 06/30/25 03:04 prednisone Allergy Unknown Unknown Verified 06/30/25 03:04 strawberry Allergy Unknown Unknown Verified 06/30/25 03:04 Sulfa (Sulfonamide Allergy Unknown Unknown Verified 06/30/25 03:04 Antibiotics) tomato Allergy Unknown Unknown Verified 06/30/25 03:04 tramadol Allergy Unknown Unknown Verified 06/30/25 03:04 mustard Allergy Unknown Verified 06/30/25 03:04 Home Medications Medication Instructions Recorded Confirmed Type aripiprazole 30 mg tablet 30 mg PO DAILY 08/30/24 03/28/25 History atorvastatin 10 mg tablet 10 mg PO QPM 08/30/24 03/28/25 History bupropion HCl 100 mg tablet 100 mg PO 08/30/24 03/28/25 History diazepam 10 mg tablet 10 mg PO BID PRN panic attack(s) 08/30/24 03/28/25 History duloxetine 60 mg capsule,delayed 60 mg PO DAILY 08/30/24 03/28/25 History release epinephrine 0.3 mg/0.3 mL 0.3 ml IM PRN 08/30/24 03/28/25 History injection, auto-injector famotidine 20 mg tablet 20 mg PO BID 08/30/24 03/28/25 History guanfacine 1 mg tablet 1 mg PO DAILY 08/30/24 03/28/25 History pramipexole 0.5 mg tablet 0.5 mg PO DAILY 08/30/24 03/28/25 History topiramate 200 mg tablet 200 mg PO BID 08/30/24 03/28/25 History trazodone 100 mg tablet 200 mg PO HS PRN 08/30/24 03/28/25 History triamterene 75 1 tab PO DAILY PRN Fluid Retention 08/30/24 03/28/25 History mg-hydrochlorothiazide 50 mg tablet bupropion HCl 75 mg tablet 75 mg PO DAILY 09/02/24 03/28/25 History duloxetine 20 mg capsule,delayed 20 mg PO DAILY 09/02/24 03/28/25 History release midodrine 10 mg tablet 10 mg PO TID 09/02/24 03/28/25 History oxcarbazepine 300 mg tablet 300 mg PO QAM 09/02/24 03/28/25 History oxcarbazepine 600 mg tablet 600 mg PO HS 09/02/24 03/28/25 History hydrocodone 5 mg-acetaminophen 325 1 tab PO Q6H PRN pain #14 tabs 02/24/25 03/28/25 Rx mg tablet tobramycin 0.3 % eye drops 4 drp otic (ear) TID #5 mL 02/28/25 03/28/25 Rx Patient History Medical History Stomach ulcer Heart attack Stroke Back problem Status post chemotherapy Heart disease Breast CA Anemia Surgical History S/P eye surgery S/P hysterectomy S/P section S/P cholecystectomy S/P brain surgery Family History Sister Myocardial infarction Breast cancer Brother Myocardial infarction Diabetes Father Heart disease Diabetes Stroke Mother Migraine headache Breast cancer Clotting disorder Family/Other Diabetes Heart disease Hypertension Stroke Social History Smoking Status: Never smoker Do You Dip or Chew Tobacco: No; Hx Alcohol Use: No Hx Substance Use: Yes Last Used Substance: Hours (ago) Substance Use Type Other:: medical marijuana Preferred Language: Thai Communication Ability: Effective 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 Beliefs That Will Affect Care: None marital status: Legally Current Living Situation: Family Current Living Situation Comment: boyfriend, uncle, son, granddaughter current occupational status: unemployed How many Children do You have: 3 Feels Safe at Home: Yes Safety Concerns: Feels Safe At This Time Diet: regular during the past year weight has: remained stable Assistive Devices: None Results & Data Vital Signs (Past 12 Hours) Vital Signs Temp Pulse Pulse Resp BP Pulse Ox O2 Del Method 06/30/25 03:26 36.4 C L 79 18 137/84 96 Room Air 06/30/25 02:00 80 16 113/90 100 Room Air 06/30/25 00:37 83 16 86/61 L 95 Room Air 06/29/25 22:50 82 06/29/25 22:30 81 18 120/81 95 Room Air PG Care Time/CCT Total # of Minutes Spent Total Time Spent with Patient: Total time spent is greater than 50% in coordination of care (as documented) at patient's floor/unit and/or counseling patient: Coding Level of Care Code 06126 Inpt Consult Level 1 Diagnoses Periapical abscess K04.7 Tourette syndrome F95.2 Acute facial pain R51.9 Acute ear pain H92.09
[2025-06-30] MEDS ORDERED: HYDROmorphone INJ 0.5 MG/0.5 ML SYR IV PRN (10:04)
[2025-06-30] MEDS ORDERED: ACETAMINOPHEN 1,000 MG/100 ML VIAL IV PRN (10:04)
--- NOTE | 2025-06-30 11:00 | Anesthesiology Consultation ---
Date of Service June 30, 2025 Assessment & Plan Chart Review Chart Review: Acceptable Risk for Surgery and Patient NOT seen in Pre Admission Testing History Surgery Operation Date: 06/30/25 10:55 Proposed Procedures p Left Facial Area Incision and Drainage - Herve Roman DMD s Extraction Teeth #18, 19 - Herve Roman, DMD Height/Weight Height: 5 ft 4 in Weight: 107.7 kg Allergies Allergy/AdvReac Type Severity Reaction Status Date / Time azithromycin Allergy Unknown Unknown Verified 06/30/25 03:04 [From Zithromax Z-Francisco] bee venom protein (honey bee) Allergy Unknown Unknown Verified 06/30/25 03:04 ciprofloxacin [From Cipro] Allergy Unknown Unknown Verified 06/30/25 03:04 codeine Allergy Unknown Unknown Verified 06/30/25 03:04 divalproex sodium Allergy Unknown Unknown Verified 06/30/25 03:04 [From Depakote] ketorolac [From Toradol] Allergy Unknown Unknown Verified 06/30/25 03:04 levetiracetam [From Keppra] Allergy Unknown Unknown Verified 06/30/25 03:04 metronidazole [From Flagyl] Allergy Unknown Unknown Verified 06/30/25 03:04 morphine Allergy Unknown Unknown Verified 06/30/25 03:04 mushroom Allergy Unknown Unknown Verified 06/30/25 03:04 nut - unspecified Allergy Unknown Unknown Verified 06/30/25 03:04 prednisone Allergy Unknown Unknown Verified 06/30/25 03:04 strawberry Allergy Unknown Unknown Verified 06/30/25 03:04 Sulfa (Sulfonamide Allergy Unknown Unknown Verified 06/30/25 03:04 Antibiotics) tomato Allergy Unknown Unknown Verified 06/30/25 03:04 tramadol Allergy Unknown Unknown Verified 06/30/25 03:04 mustard Allergy Unknown Verified 06/30/25 03:04 Medications Home Medications Medication Instructions Recorded Confirmed Last Taken aripiprazole 30 mg tablet 30 mg PO DAILY 08/30/24 03/28/25 Unknown atorvastatin 10 mg tablet 10 mg PO QPM 08/30/24 03/28/25 Unknown bupropion HCl 100 mg tablet 100 mg PO 08/30/24 03/28/25 Unknown diazepam 10 mg tablet 10 mg PO BID PRN panic attack(s) 08/30/24 03/28/25 Unknown duloxetine 60 mg capsule,delayed 60 mg PO DAILY 08/30/24 03/28/25 Unknown release epinephrine 0.3 mg/0.3 mL 0.3 ml IM PRN 08/30/24 03/28/25 Unknown injection, auto-injector famotidine 20 mg tablet 20 mg PO BID 08/30/24 03/28/25 Unknown guanfacine 1 mg tablet 1 mg PO DAILY 08/30/24 03/28/25 Unknown pramipexole 0.5 mg tablet 0.5 mg PO DAILY 08/30/24 03/28/25 Unknown topiramate 200 mg tablet 200 mg PO BID 08/30/24 03/28/25 Unknown trazodone 100 mg tablet 200 mg PO HS PRN 08/30/24 03/28/25 Unknown triamterene 75 1 tab PO DAILY PRN Fluid Retention 08/30/24 03/28/25 Unknown mg-hydrochlorothiazide 50 mg tablet bupropion HCl 75 mg tablet 75 mg PO DAILY 09/02/24 03/28/25 Unknown duloxetine 20 mg capsule,delayed 20 mg PO DAILY 09/02/24 03/28/25 Unknown release midodrine 10 mg tablet 10 mg PO TID 09/02/24 03/28/25 Unknown oxcarbazepine 300 mg tablet 300 mg PO QAM 09/02/24 03/28/25 Unknown oxcarbazepine 600 mg tablet 600 mg PO HS 09/02/24 03/28/25 Unknown hydrocodone 5 mg-acetaminophen 325 1 tab PO Q6H PRN pain #14 tabs 02/24/25 03/28/25 Unknown mg tablet tobramycin 0.3 % eye drops 4 drp otic (ear) TID #5 mL 02/28/25 03/28/25 Unknown Active Medications Generic Name Dose Route Start Last Admin Trade Name Freq PRN Reason Stop Dose Admin Famotidine 20 mg 06/30/25 09:00 06/30/25 08:14 Famotidine 20 Mg Tab PO 07/30/25 08:59 20 mg BID PRATIK Administration Lactated Ringer's 1,000 mls @ 100 mls/hr 06/30/25 03:01 06/30/25 10:32 Lr IV 06/30/25 13:00 100 mls/hr .Q10H PRATIK Infusion Ampicillin Sodium/Sulbactam Sodium 3,000 mg in 100 mls @ 200 mls/hr 06/30/25 08:00 10/17/25 10:26 Unasyn IV 07/10/25 07:59 Infused Q6H PRATIK Infusion Midodrine 10 mg 06/30/25 08:00 06/30/25 08:19 Midodrine Hcl 10 Mg Tab PO 07/30/25 07:59 Not Given TID@0800,1200,1800 PRATIK Ondansetron HCl 4 mg 06/30/25 03:01 06/30/25 08:03 Ondansetron Inj 2 Mg/Ml 2 Ml Vial IV 07/30/25 03:00 4 mg Q6H PRN Administration Nausea And Vomiting Protocol Oxycodone HCl 5 mg 06/30/25 03:01 06/30/25 03:23 Oxycodone Hcl Ir 5 Mg Tab (Immediate Release) PO 07/14/25 03:00 5 mg Q4H PRN Administration Severe Pain (Scale 7, 8, 9,10) Topiramate 200 mg 06/30/25 09:00 06/30/25 08:20 Topiramate 100 Mg Tab PO 07/30/25 08:59 Not Given BID PRATIK Past Medical History Medical History Stomach ulcer Heart attack Stroke Back problem Status post chemotherapy Heart disease Breast CA Anemia Past Family History Family History Sister Myocardial infarction Breast cancer Brother Myocardial infarction Diabetes Father Heart disease Diabetes Stroke Mother Migraine headache Breast cancer Clotting disorder Family/Other Diabetes Heart disease Hypertension Stroke Past Surgical History Surgical History S/P eye surgery S/P hysterectomy S/P section S/P cholecystectomy S/P brain surgery Social History Smoking Status: Never smoker Do You Dip or Chew Tobacco: No Hx Alcohol Use: No Hx Substance Use: Yes substance use type: marijuana Substance Use Type Other:: medical marijuana Last Used Substance: Hours (ago) Physical Exam Vital Signs Last Vital Signs Temp 36.4 C L 06/30/25 03:26 Pulse 79 06/30/25 03:26 Resp 18 06/30/25 03:26 BP 137/84 06/30/25 03:26 Pulse Ox 96 06/30/25 03:26 O2 Del Method Room Air 06/30/25 03:26 Testing Laboratory Results 06/29/25 22:30 06/29/25 22:30
[2025-06-30] MEDS: PROCHLORPERAZINE 5 MG in SYRINGE 4 ML IV PRN (11:33)
--- NOTE | 2025-06-30 11:35 | Communication Note ---
Date of Service: June 30, 2025 Brief note, full note to follow Left maxillary dental infection tooth #19 she continues to have left-sided jaw/facial pain we will continue amp sulbactam, anticipating I&D with probable tooth extraction today by Dr. Roman no medical contraindications for proceeding with surgery as planned I adjusted her intravenous nausea medications, added IV acetaminophen and IV hydromorphone. She has been having nausea vomiting unable to tolerate p.o. meds right now. She is intolerant of NSAIDs
--- NOTE | 2025-06-30 11:49 | Communication Note ---
Date of Service: June 30, 2025 Immediately following first dose of compazine she said face felt warm and tingly, went unresponsive and had apx 1 min seizure witnessed by RN. No postic wesley period. Consistent with non-epileptic seizure (pseudoseizure), stopped compazine.
[2025-06-30] MEDS ORDERED: ONDANSETRON INJ 2 MG/ML 2 ML VIAL ONE (13:02)
[2025-06-30] MEDS ORDERED: DEXAMETHASONE SOD INJ 4 MG/ML VIAL ONE (13:02)
[2025-06-30] MEDS ORDERED: LIDOCAINE 2% 2 ML VIAL/AMP(20MG/ML) INFIL ONE (13:02)
[2025-06-30] MEDS ORDERED: MIDAZOLAM HCL 1 MG/ML 2ML VIAL ONE (13:02)
[2025-06-30] MEDS ORDERED: ROCURONIUM BROMIDE 10 MG/ML 5 ML VIAL IV ONE (13:02)
[2025-06-30] MEDS ORDERED: PROPOFOL IV EMULSION 10 MG/ML 20 ML VIAL IV ONE (13:02)
--- NOTE | 2025-06-30 13:32 | History & Physical Bridge Note ---
Date of Service June 30, 2025 History & Physical Bridge Note I have examined the patient, reviewed the History & Physical and in the interval since the performance of the History & Physical I have noted the following changes of clinical significance: no changes noted OK for the I&D and extractions
[2025-06-30] MEDS ORDERED: SUGAMMADEX SODIUM 200 MG/2 ML VIAL IV ONE ×2 (14:09→14:20)
[2025-06-30] MEDS: BUPIVACAINE/EPINEPHRINE 0.5% 1:200,000 1.8 ML CARP ONE (14:25)
[2025-06-30] MEDS: CHLORHEXIDINE GLUCONATE 0.12% 480 ML MT ONE (14:25)
[2025-06-30] MEDS: BUPIVACAINE/EPINEPHRINE 0.5% MPF 1:200,000 30 ML VIAL ONE (14:26)
--- NOTE | 2025-06-30 14:32 | Post Operative Brief Note ---
PG Immediate Post Op with CF Date of Surgery June 30, 2025 Pre & Post Diagnosis Operation Date: 06/30/25 10:55 Pre-Op Diagnosis: Periapical abscess with left side facial swelling/ Fractured # 18,19,32 Post-Op Diagnosis: Periapical abscess with left side facial swelling/ Fractured # 18,19,32 I identified the patient and participated in the time-out.: Yes Procedure Operation Date: 06/30/25 10:55 Actual Procedures p Left Facial Area Incision and Drainage(Not Applicable) - Herve Roman DMD s Extraction Teeth #18, 19, 23(Not Applicable) - Herve Roman DMD Surgeon Herve Roman DMD Nurse Transition none Estimated Blood Loss 2 Findings Consistent with Post-Op Diagnosis grossly infected teeth resulting in facial infection and recent admission Specimens Specimen Description: none per surgeon Complications done Disposition Accompanied Patient To Recovery: Yes
[2025-06-30] MEDS ORDERED: ONDANSETRON INJ 2 MG/ML 2 ML VIAL IV PRN (14:41)
[2025-06-30] MEDS ORDERED: ATROPINE SULFATE 0.1 MG/ML 10ML SYR IV PRN (14:41)
--- NOTE | 2025-06-30 14:44 | Operative Report ---
PG Post Operative Report Pre & Post Diagnosis Operation Date: 06/30/25 10:55 Pre-Op Diagnosis: Periapical abscess Left Facial Area Incision and Drainage(Not Applicable) - Herve Roman DMD s Extraction Teeth #18, 19(Not Applicable) - Post-Op Diagnosis: Periapical abscess Left Facial Area Incision and Drainage(Not Applicable) - Herve Roman DMD s Extraction Teeth #18, 19(Not Applicable) - I identified the patient and participated in the time-out.: Yes Procedure Operation Date: 06/30/25 10:55 Actual Procedures p Left Facial Area Incision and Drainage(Not Applicable) - Herve Roman DMD s Extraction Teeth #18, 19(Not Applicable) - Herve Roman DMD Surgeon Herve Roman DMD Medical Case Manager none Estimated Blood Loss 2 Findings Consistent with Post-Op Diagnosis Specimens none Drains none Anesthesia Type General Complications none Indications Facial infected admitted through the ER Left Facial Area Incision and Drainage s Extraction Teeth #18, 19,23(Not Applicable) - Description of Procedure Incision and Drainage CPT 17640 left submandibular and facial infection Extraction of teeth D7210 for 18,19 Extraction of teeth D7140 for 23 Actual Procedures p Incision and Drainage Submandibular Abscess; Removal of Teeth 18,19,23(Not Applicable) - Herve Roman DMD Once cleared for surgery general anesthesia was achieved, the eyes were protected by the anesthesia dept criteria. A time out was take for patient ID, antibiotics, equipment and position verification once all agreed the procedure began. Local anesthesia using Marcaine with a vasoconstrictor ( 1.8 ml per site) given into left inferior alveolar nerve A throat pack was placed after the oral cavity was irrigated with saline. Once a surgical level of anesthesia was obtained and the local anesthesia was given time for the blocks the surgery was started. I turned my attention to the infection which was located in the floor of the mouth and submental area. The tongue was elevated and there was also swelling associated with tooth # 18,19,23 ( see CT scan report) Incision and Drainage CPT 66754 Using a 15 blade an incision was made lateral to the alveolar ridge in the swollen mucobuccal fold to drain the the submandibular gland space. Once the incision was made a lot of pus extruded from the site. A curved hemostat was carefully placed into the infected space along the lateral side of the lower jaw and into the submandibular space. Some further drainage was now allowed to escape. I palpated the chin and cheek area and no further drainage was expressed. The area was irrigated with at least 100 ml of NS solution. I now turned my attention to remove the # 18,19 and 23 teeth Lower # 18,19 D7210 x 2 (surgical extraction) The full thick Muco-periosteal flap was made on the facial aspect from # area 17-20. The flap was reflected to expose the the subperiosteal space the bone adjacent to # 18 and 19. The rongeurs was used to remove bone, the teeth were removed with a 301 elevator and dental forceps, the mental nerve was intact, there was a large amount of granulation tissue on the apex and some more pus that was expressed. A 2-0 Chromic was used to close the flap. Lower # 23 D7140 x 1 (simple extraction) I also extracted # 23 which was a simple root removal using a dental forcept .A 2-0 Chromic was used to close the flap. I attest to the content of the Intraoperative Record and any orders documented therein. Any exceptions are noted below.
--- NOTE | 2025-06-30 14:54 | Anesthesiology Progress Note ---
Date of Service June 30, 2025 Anesthesia Post Procedure Vital Signs Vital Signs: Temp Pulse Pulse Pulse Resp BP BP 06/30/25 14:45 93 H 22 06/30/25 14:35 36.1 C L 96 H 26 H 06/30/25 13:23 36.6 C 86 18 06/30/25 03:26 36.4 C L 79 18 137/84 06/30/25 02:00 80 16 113/90 06/30/25 00:37 83 16 86/61 L 06/29/25 22:50 82 06/29/25 22:30 81 18 120/81 06/29/25 21:25 81 16 136/109 H 06/29/25 20:36 37 C 84 18 155/95 H BP Pulse Ox O2 Del Method 06/30/25 14:45 154/84 H 92 Room Air 06/30/25 14:35 144/87 H 96 Room Air 06/30/25 13:23 157/87 H 95 Room Air 06/30/25 03:26 96 Room Air 06/30/25 02:00 100 Room Air 06/30/25 00:37 95 Room Air 06/29/25 22:50 06/29/25 22:30 95 Room Air 06/29/25 21:25 96 Room Air 06/29/25 20:36 95 Room Air Pain Intensity Left Ear: Pain Intensity: 10 Left Face: Pain Intensity: 8 Transfer of Care Handoff Completed per policy Notes Mental Status: alert / awake / arousable Patient Amnestic to Procedure: Yes Nausea / Vomiting: adequately controlled Pain: adequately controlled Airway Patency, RR, SpO2: stable & adequate BP & HR: stable & adequate Hydration State: stable & adequate Anesthetic Complications: no major complications apparent
[2025-06-30] MEDS: PRAMIPEXOLE DIHYDROCHLO 0.5 MG TAB PO SCH (16:55)
[2025-06-30] MEDS: ARIPiprazole 15 MG TAB PO SCH (16:55)
--- NOTE | 2025-06-30 18:44 | Hospitalist Progress Note ---
Date of Service June 30, 2025 Assessment & Plan (1) Periapical abscess: (2) Acute facial pain: (3) GERD (gastroesophageal reflux disease): (4) Seizure disorder: (5) Tourette syndrome: Plan 49yo female presenting with 1 week of left sided facial pain and swelling, admitted for IV antibiotics and I&D of periapical abscess tooth #19 # Left maxillary periapical tooth abscess Left maxillary periapical tooth abscess at tooth number 19, associated with skin and soft tissue infection on the left side of face. Dr. Roman ([facility] [place]) plans mid- morning surgery for I & D and possible tooth extractions. Continuing IV Unasyn. Treatment plan: Continuing IV Unasyn. Mid-morning surgery for I & D and possible tooth extractions. Nausea/vomiting intol po so treating pain with IV acetaminophen +/- opioid. ADDENDUM: reviewed op note, large amount of pus was drained, three teeth extracted. Await culture results # Acute nausea Treatment plan: Administered Zofran; will add Compazine if ineffective. Had reaction after compazine, discontinued #Seizure disorder/Tourette syndrome -Continue home medications -Abilify -Wellbutrin -Valium -Cymbalta -Guanfacine -Trileptal -Topamax PNES- She had a one minute seizure with no postictal period witness by RN this am. Occurred immediately after admin of IV compazine (see my note this AM), which I discontinued. C/W pseudoseizure and ok to proceed with surgery as planned #Hyperlipidemia -Continue Atorvastatin 10mg po qPM #GERD -Continue Pepcid 20mg po BID DVT ppx - low risk, SCDs. Add chemo px if stay prolonged beyond tomorrow Admission and Anticipated Discharge Date Admission Date: June 30, 2025 Subjective scheduled for mid-morning surgery including I & D and possible tooth extractions. Continuing IV Unasyn. Experiencing left-sided facial pain and acute nausea. Administered Zofran; will add Compazine if ineffective. IV pain management with acetaminophen +/- opioid. Physical Exam Physical Exam: General Appearance: Awake, alert, and oriented x4. Comfortable. Vital signs: Reviewed past 24h vital signs in EMR, unremarkable. HEENT: No erythema on left side of face, maxilla but there is swelling and tenderness, no tenderness of mastoid process. Oral exam: dental caries, left lower molars Respiratory: Lungs clear bilaterally, loose cough. Cardiovascular: Regular heart rhythm. Skin: Warm and dry, no rash. Neurological: Normal. Psychiatric: Normal. Results & Data Results & Data Vital Signs (Past 12 Hours) Vital Signs Temp Pulse Pulse Resp BP BP Pulse Ox 06/30/25 18:09 91 H 135/84 95 06/30/25 16:01 36.6 C 86 18 142/91 H 94 06/30/25 15:20 36.5 C 88 18 143/88 H 93 06/30/25 15:05 36.4 C L 90 21 145/65 H 92 06/30/25 14:55 89 22 152/79 H 92 06/30/25 14:45 93 H 22 154/84 H 92 06/30/25 14:35 36.1 C L 96 H 26 H 144/87 H 96 06/30/25 13:23 36.6 C 86 18 157/87 H 95 O2 Del Method 06/30/25 18:09 Room Air 06/30/25 16:01 Room Air 06/30/25 15:20 Room Air 06/30/25 15:05 Room Air 06/30/25 14:55 Room Air 06/30/25 14:45 Room Air 06/30/25 14:35 Room Air 06/30/25 13:23 Room Air Laboratory Results - Laboratory Studies: - CBC: unremarkable - BMP: unremarkable - LFTs: unremarkable - Imaging: - Maxillofacial CT: chronic sinusitis PG Care Time/CCT Total # of Minutes Spent Total Time Spent with Patient: Total time spent is greater than 50% in coordination of care (as documented) at patient's floor/unit and/or counseling patient: Coding Level of Care Code 56817 SUB INP/OBS CARE 2/35MIN Diagnoses Periapical abscess K04.7 Acute facial pain R51.9 GERD (gastroesophageal reflux disease) K21.9 Seizure disorder G40.909 Tourette syndrome F95.2
[2025-06-30] MEDS: ATORVASTATIN 10 MG TAB PO SCH (22:13)
[2025-07-01 02:52] VITALS: RESP 18
[2025-07-01] MEDS: HYDROmorphone INJ 0.5 MG/0.5 ML SYR IV PRN (03:48)
[2025-07-01 10:30] LABS: Hematocrit (blood only) 36.0 % (37.0-47.0); Hemoglobin 12.1 g/dl (12.0-16.0); Mean Corpuscular Hemoglobin 27.8 pg (25.0-34.0); Mean Corpuscular Volume 82.8 fL (80.0-100.0); Platelet Count 273 K/uL (130-400); RDW Standard Deviation 40.0 fL (36.4-46.3); Red Blood Count 4.35 M/uL (4.20-5.40); White Blood Count 10.69 K/ul (4.8-10.8)
[2025-07-01 10:46] LABS: Anion Gap 10.0 (3-11); Blood Urea Nitrogen 9.0 mg/dl (6-23); Calcium 9.3 mg/dl (8.6-10.3); Carbon Dioxide 25.0 mmol/L (21-32); Chloride 103.0 mmol/L (98-107); Creatinine Clr Calc Pharmacy 112.9 ml/min; Glucose 149.0 mg/dl (70-99(Fasting)); Potassium 3.9 mmol/L (3.5-5.1); Sodium 138.0 mmol/L (136-145)
[2025-07-01] MEDS: PROMETHAZINE HCL 25 MG TAB PO SCH (11:20)
[2025-07-01] MEDS: ACETAMINOPHEN 1,000 MG/100 ML VIAL IV SCH (11:21)
--- NOTE | 2025-07-01 16:43 | Hospitalist Progress Note ---
Date of Service July 01, 2025 Assessment & Plan (1) Periapical abscess: (2) Acute facial pain: (3) GERD (gastroesophageal reflux disease): (4) Seizure disorder: (5) Tourette syndrome: Plan 49yo female presenting with 1 week of left sided facial pain and swelling, admitted for IV antibiotics and I&D of periapical abscess tooth #19 # Left maxillary periapical tooth abscess Left maxillary periapical tooth abscess at tooth number 19, associated with skin and soft tissue infection on the left side of face. I&D and tooth extractions by [facility] Dr. Roman 06/30. reviewed op note, large amount of pus was drained, three teeth extracted. OK for DC home from Dr. Roman's perspective Changed pain regimen to IV APAP scheduled and oral oxycodone, stopped IV hydromorphone which may be causing vomiting Due to vomiting, continue scheduled premeal Phenergan 25 mg at bedtime. Transition from Unasyn to oral Augmentin tonight, ensuring tolerance of dinner, breakfast, and a few doses of Augmentin. # Acute nausea and vomiting - probably from IV opioids see above #Seizure disorder/Tourette syndrome -Continue home medications -Abilify -Wellbutrin -Valium -Cymbalta -Guanfacine -Trileptal -Topamax PNES- She had a one minute PNES with no postictal period witness by RN am 06/30. Occurred immediately after admin of IV compazine which caused a warm feeling in her face #Hyperlipidemia -Continue Atorvastatin 10mg po qPM #GERD -Continue Pepcid 20mg po BID DVT ppx -enox 40 Admission and Anticipated Discharge Date Admission Date: June 30, 2025 Subjective She experienced severe pain requiring IV hydromorphone and significant nausea and vomiting overnight. Zofran was ineffective. She had an adverse reaction to Compazine, and metoclopramide is contraindicated due to potential interactions with her long-term medications. Scheduled premeal Phenergan 25 mg was effective. She consumed lunch and is currently having a grilled cheese snack but remains concerned about vomiting her antibiotics, a recurring issue. L face and dental pain much improved. She noticed some swelling in opposing left upper gum. No abdominal pain and having BMs Physical Exam 2 Physical Exam: General Appearance: The patient is awake, alert, and oriented x4. Vital signs: Reviewed past 24h vital signs in EMR, unremarkable. HEENT: Oral exam reveals extractions of teeth 18, 19, and 24 with healthy sockets and no bleeding. Swelling has significantly improved or resolved. No erythema is present. Two small, shallow ulcerations are on the left upper gums, likely from procedural pressure, with no pain, just minor swelling. Respiratory: Within normal limits. Gastrointestinal: Abdomen is soft and nondistended. Skin: Warm and dry, no rash. Neurological: Normal. Psychiatric: Normal. Results & Data Results & Data Vital Signs (Past 12 Hours) Vital Signs Temp Pulse Resp BP Pulse Ox O2 Del Method 07/01/25 08:44 36.4 C L 89 18 137/82 94 Room Air Laboratory Results 07/01/25 09:50 07/01/25 09:50 BMP CBC reviewed unremarkable PG Care Time/CCT Total # of Minutes Spent Total Time Spent with Patient: Total time spent is greater than 50% in coordination of care (as documented) at patient's floor/unit and/or counseling patient: Coding Level of Care Code 76365 SUB INP/OBS CARE 2/35MIN Diagnoses Periapical abscess K04.7 Acute facial pain R51.9 GERD (gastroesophageal reflux disease) K21.9 Seizure disorder G40.909 Tourette syndrome F95.2
[2025-07-01] MEDS: AMOXICILLIN/CLAVULANATE 875 MG TAB PO SCH (17:51)
[2025-07-01] MEDS: ENOXAPARIN INJ 40 MG/0.4 ML SYR SQ SCH (21:07)
[2025-07-01 23:15] VITALS: TEMP 98.1
[2025-07-02 07:13] VITALS: BP 130/80; PULSE 74; O2SAT 97
--- NOTE | 2025-07-02 08:37 | Discharge Summary ---
Discharge Summary Date of Service July 02, 2025 Principal Dx & Hospital Course #1 = Principal Diagnosis (1) Periapical abscess: (2) Facial cellulitis: (3) GERD (gastroesophageal reflux disease): (4) Seizure disorder: (5) Tourette syndrome: Plan 49yo female presenting with 1 week of left sided facial pain and swelling, admitted for IV antibiotics and I&D of periapical abscess tooth #19 # Left maxillary periapical tooth abscess, associated facial SSTI Left maxillary periapical tooth abscess at tooth number 19, associated with skin and soft tissue infection on the left side of face. I&D and tooth extractions by [facility] Dr. Roman 06/30. reviewed op note, large amount of pus was drained, three teeth extracted. Stayed in hospital until 07/02 because of postoperative nausea and vomiting, resolved, eating well and tolerating oral augmentin with premedication of oral phenergan Complete rx with augmentin Still with dental/facial pain - not controlled with APAP and had reaction from NSAIDS, Rx for hydrocodone Follow up with Dr. Roman #Seizure disorder/Tourette syndrome -Continue home medications -Abilify -Wellbutrin -Valium -Cymbalta -Guanfacine -Trileptal -Topamax PNES- She had a one minute PNES with no postictal period witness by RN am 06/30. Occurred immediately after admin of IV compazine which caused a warm feeling in her face #Hyperlipidemia -Continue Atorvastatin 10mg po qPM #GERD -Continue Pepcid 20mg po BID Admission HPI Per Admitting Provider Kaya Gunter is a 49yo female presenting with severe right facial pain. She reports pain in the left ear approximately 1 week ago. She was seen by her PCP and started on Amoxicillin which helped with the ear pain. Then developed worsening pain of the left face and jaw. Also with swelling. Has been using salt water and Listerine gargles. Denies fever, chills, hearing loss, trismus In the ER patient afebrile ER Course: Unasyn Zofran Oxycodone Discharge Exam General Appearance: The patient is awake, alert, and oriented x4. Vital signs: Reviewed past 24h vital signs in EMR, unremarkable. HEENT: unchanged 07/02: extractions of teeth 18, 19, and 24 with healthy sockets and no bleeding. Swelling has significantly improved or resolved. No erythema is present. Two small, shallow ulcerations are on the left upper gums, likely from procedural pressure, with no pain, just minor swelling. Respiratory: Within normal limits. Gastrointestinal: Abdomen is soft and nondistended. Skin: Warm and dry, no rash. Neurological: Normal. Psychiatric: Normal. Discharge Plan Discharge Items Patient Disposition: Home - Self-Care Reason For Visit: LEFT FACIAL PAIN Discharge Diagnosis: Left submandibular and facial infection, periapical abscess associated with teeth #18, 19. Extraction of teeth 18,19,23 Activity: Resume your previous activity Non-emergency contact: Primary Care Provider and Surgeon Call non-emergency contact if: you have any medication questions, your symptoms worsen and you have a fever Follow-up/Referrals: Herve Roman DMD [Physician] - Elie Tang MD [Primary Care Provider] - Diet: Other - See Diet Comment Diet Comment: soft diet Addtl Attending Provider Instructions: Take antibiotics as directed You can continue to take nausea medicine (promethazine) 30 minutes prior to meals (and antibiotic) as needed -promethazine can cause drowsiness and do not drive while taking this medication Take a probiotic for 2-4 weeks to prevent antibiotic associated diarrhea. You can take Imodium as needed for diarrhea. These are available over the counter. If you have rash or severe diarrhea after/while taking antibiotics, call your doctor. Diarrhea associated with broad spectrum antibiotics can occur up to six months following antibiotics. If you have significant ongoing diarrhea, especially with abdominal pain or fever, seek medical attention. Follow a soft diet Take acetaminophen or hydrocodone as needed for pain. Do not take more than 4000 mg of acetaminophen in a 24h period Follow up with Dr. Roman - call his office Thursday to schedule It was a pleasure taking care of you in the hospital, Anne-Marie Cook MD Pending Studies at Discharge: No Stand-Alone Forms: My [facility] [place], Pain - Opioid Pain Management, Smoking Cessation Medications and DC Order Prescriptions: New promethazine 25 mg Tablet 25 mg PO AC PRN (Reason: nausea) Qty: 30 0RF amoxicillin-pot clavulanate 875-125 mg Tablet 1 tab PO BIDM Qty: 10 0RF hydrocodone-acetaminophen 5-325 mg Tablet 1 tab PO Q4H PRN (Reason: pain) Qty: 12 0RF Continued tobramycin 0.3 % drops 4 drp otic (ear) TID Qty: 5 1RF duloxetine 60 mg capsule,delayed release(DR/EC) 60 mg PO DAILY diazepam 10 mg tablet 10 mg PO BID PRN (Reason: panic attack(s)) topiramate 200 mg tablet 200 mg PO BID famotidine 20 mg tablet 20 mg PO BID triamterene-hydrochlorothiazid 75-50 mg tablet 1 tab PO DAILY PRN (Reason: Fluid Retention) epinephrine 0.3 mg/0.3 mL auto-injector 0.3 ml IM PRN atorvastatin 10 mg tablet 10 mg PO QPM pramipexole 0.5 mg tablet 0.5 mg PO DAILY aripiprazole 30 mg tablet 30 mg PO DAILY trazodone 100 mg tablet 200 mg PO HS PRN bupropion HCl 100 mg tablet 100 mg PO oxcarbazepine 600 mg tablet 600 mg PO HS oxcarbazepine 300 mg tablet 300 mg PO QAM midodrine 10 mg tablet 10 mg PO TID Rx Instructions: do not give last dose of day after 6PM or within 4 hrs of bedtime duloxetine 20 mg capsule,delayed release(DR/EC) 20 mg PO DAILY bupropion HCl 75 mg tablet 75 mg PO DAILY Rx Instructions: administer 6 hours apart hydrocodone-acetaminophen 5-325 mg tablet 1 tab PO Q6H PRN (Reason: pain) Qty: 14 0RF Discontinued guanfacine 1 mg tablet 1 mg PO DAILY Discharge Orders: Discharge Order (Routine); Ordered 07/02/25 Ordered By: Anne-Marie Cook Admission Data Admit Date/Time: 06/30/25 01:59 Attending Provider: Anne-Marie Cook Admit Provider: Latasha Headley Primary Care Provider: Elie Tang Other Providers: Herve Roman Other Interventions: Discharge Summary Assessment (RN) Last Done: 07/02/25 12:27 Hospital Stay Data Consultations 06/30/25 01:59 Consult Oromaxillofacial Surgery Routine Procedures Performed Operation Date: 06/30/25 10:55 Actual Procedures p Left Facial Area Incision and Drainage(Not Applicable) - Herve Roman DMD s Extraction Teeth #18, 19(Not Applicable) - Herve Roman DMD Diagnostic Imagining Performed 06/29/25 23:06 CT face [CT facial bones wo con] Stat Pending Results Patient Have Any Pending Studies at Discharge: No Discharge Instructions Given to Patient (Per Discharging Provider) Take antibiotics as directed You can continue to take nausea medicine (promethazine) 30 minutes prior to meals (and antibiotic) as needed -promethazine can cause drowsiness and do not drive while taking this medication Take a probiotic for 2-4 weeks to prevent antibiotic associated diarrhea. You can take Imodium as needed for diarrhea. These are available over the counter. If you have rash or severe diarrhea after/while taking antibiotics, call your doctor. Diarrhea associated with broad spectrum antibiotics can occur up to six months following antibiotics. If you have significant ongoing diarrhea, especially with abdominal pain or fever, seek medical attention. Follow a soft diet Take acetaminophen or hydrocodone as needed for pain. Do not take more than 4000 mg of acetaminophen in a 24h period Follow up with Dr. Roman - call his office Thursday to schedule It was a pleasure taking care of you in the hospital, Anne-Marie Cook MD Total Time Total Time Spent Total Time Spent (In Minutes): <30 Coding Level of Care Code 91181 IN/OBS DISCH 30 MIN/LESS Diagnoses Periapical abscess K04.7 Facial cellulitis L03.211 GERD (gastroesophageal reflux disease) K21.9 Seizure disorder G40.909 Tourette syndrome F95.2
[2025-07-02] MEDS: LOPERAMIDE HCL 2 MG CAP PO PRN (10:48)
[2025-07-02] MEDS: HYDROCODONE/ACETAMOPHEN 5/325MG TAB PO PRN (10:48)
== END 2025-07-02 13:11 | disposition home or self-care (01) ==
LOC: ED 20:27 → 3W 06-30 01:59 → SUATTDRO 06-30 01:59 → INTOOBSV 06-30 01:59 → 3W 06-30 02:50